=== PATIENT | male | born 1975 | race Two or more races ===

== ENCOUNTER 2018-02-27 09:43 | Emergency (ER) | payer OTHER ==
[~2018-02-27] VITALS: Ht 157.5 cm; Wt 61.2 kg
--- NOTE | 2018-02-27 09:59 | NUR ---
ED Nurse Note: Pt came in from home w/ flu like symptoms since yesterday. Pt reports non productive cough, 9/10 headache and tension around his ears. Skin warm to touch. A + O x4. Ambulatory. Partner at the bedside.
[2018-02-27 10:00] VITALS: BP 133/86
[2018-02-27] MEDS ORDERED: Acetaminophen 500mg (ES) tab ORAL ONE (10:15)
[2018-02-27 10:33] LABS: HEMATOCRIT 49.4 % (42.0-52.0); MEAN CORPUSCULAR VOLUME 88 FL (80-99); PLATELET COUNT 192 K/UL (150-450); RED CELL DISTRIBUTION WIDTH 11.8 % (11.6-14.8); WHITE BLOOD COUNT 7.3 K/UL (4.8-10.8)
[2018-02-27 10:49] LABS: ANION GAP 8 mmol/L (5-15); BLOOD UREA NITROGEN 14 mg/dL (7-18); CALCIUM 8.7 MG/DL (8.5-10.1); CARBON DIOXIDE 26 MMOL/L (21-32); CHLORIDE 104 MMOL/L (98-107); CREATININE 1.2 MG/DL (0.55-1.30); POTASSIUM 3.8 MMOL/L (3.5-5.1); SODIUM 138 MMOL/L (136-145)
--- NOTE | 2018-02-27 10:51 | NUR ---
ED Nurse Note: Urine has been collected and sent to lab.
[2018-02-27 10:54] LABS: ALANINE AMINOTRANSFERASE 49 U/L (12-78); ALBUMIN 3.7 G/DL (3.4-5.0); ALBUMIN/GLOBULIN RATIO 1.1 (1.0-2.7); ALKALINE PHOSPHATASE 94 U/L (46-116); ASPARTATE AMINO TRANSFERASE 21 U/L (15-37); BILIRUBIN,TOTAL 0.9 MG/DL (0.2-1.0)
[2018-02-27 10:57] LABS: APPEARANCE,URINE CLEAR; BILIRUBIN, URINE NEGATIVE (NEGATIVE); COLOR,URINE PALE YELLOW; GLUCOSE, URINE (UA) NEGATIVE (NEGATIVE); KETONES,URINE NEGATIVE (NEGATIVE); LEUKOCYTE ESTERASE ,URINE NEGATIVE (NEGATIVE); NITRITE,URINE NEGATIVE (NEGATIVE); PH,URINE 6 (4.5-8.0); PROTEIN,URINE NEGATIVE (NEGATIVE); UROBILINOGEN,URINE NORMAL MG/DL (0.0-1.0)
--- NOTE | 2018-02-27 10:58 | NUR ---
ED Nurse Note: Xray at the bedside.
[2018-02-27 11:50] VITALS: BP 111/76
--- NOTE | 2018-02-27 12:27 | Diagnostic Imaging Report ---
Indication: Cough Comparison: None A single view chest radiograph was obtained. Findings: Cardiomediastinal appearance is within normal limits for age. There is minimal atelectasis at the left lung base. Pulmonary vascularity is appropriate. The diaphragmatic contour is smooth and costophrenic angles are sharp. No pleural effusions are identified. The bones are unremarkable. Impression: Minimal left basal atelectasis
--- NOTE | 2018-02-27 14:29 | Emergency Room Report ---
History of Present Illness General Chief Complaint: Upper Respiratory Illness Source: Patient Present Illness Allergies: Coded Allergies: No Known Allergies (Unverified , 02/27/18) Patient History Social History: Denies: smoking, alcohol use, drug use Reviewed Nursing Documentation: PMH: Agreed; PSxH: Agreed Nursing Documentation-PMH Past Medical History: No Stated History Physical Exam Vital Signs Date Time Temp Pulse Resp B/P (MAP) Pulse Ox O2 Delivery O2 Flow Rate FiO2 02/27/18 09:47 101.1 107 20 136/92 96 Room Air 02/27/18 10:00 98 Medical Decision Making Diagnostic Impression: Primary Impression: Influenza Additional Impression: Viral syndrome Laboratory Tests Test 02/27/18 10:15 02/27/18 10:50 White Blood Count 7.3 K/UL (4.8-10.8) Red Blood Count 5.60 M/UL (4.70-6.10) Hemoglobin 17.0 G/DL (14.2-18.0) Hematocrit 49.4 % (42.0-52.0) Mean Corpuscular Volume 88 FL (80-99) Mean Corpuscular Hemoglobin 30.3 PG (27.0-31.0) Mean Corpuscular Hemoglobin Concent 34.4 G/DL (32.0-36.0) Red Cell Distribution Width 11.8 % (11.6-14.8) Platelet Count 192 K/UL (150-450) Mean Platelet Volume 8.1 FL (6.5-10.1) Neutrophils (%) (Auto) % (45.0-75.0) Lymphocytes (%) (Auto) % (20.0-45.0) Monocytes (%) (Auto) % (1.0-10.0) Eosinophils (%) (Auto) % (0.0-3.0) Basophils (%) (Auto) % (0.0-2.0) Differential Total Cells Counted 100 Neutrophils % (Manual) 87 % (45-75) H Lymphocytes % (Manual) 5 % (20-45) L Monocytes % (Manual) 4 % (1-10) Eosinophils % (Manual) 2 % (0-3) Basophils % (Manual) 2 % (0-2) Band Neutrophils 0 % (0-8) Platelet Estimate Adequate Platelet Morphology Normal Red Blood Cell Morphology Normal Sodium Level 138 MMOL/L (136-145) Potassium Level 3.8 MMOL/L (3.5-5.1) Chloride Level 104 MMOL/L (98-107) Carbon Dioxide Level 26 MMOL/L (21-32) Anion Gap 8 mmol/L (5-15) Blood Urea Nitrogen 14 mg/dL (7-18) Creatinine 1.2 MG/DL (0.55-1.30) Estimate Glomerular Filtration Rate > 60 mL/min (>60) Glucose Level 127 MG/DL (74-106) H Calcium Level 8.7 MG/DL (8.5-10.1) Total Bilirubin 0.9 MG/DL (0.2-1.0) Aspartate Amino Transferase (AST) 21 U/L (15-37) Alanine Aminotransferase (ALT) 49 U/L (12-78) Alkaline Phosphatase 94 U/L (46-116) Total Protein 7.1 G/DL (6.4-8.2) Albumin 3.7 G/DL (3.4-5.0) Globulin 3.4 g/dL Albumin/Globulin Ratio 1.1 (1.0-2.7) Urine Color Pale yellow Urine Appearance Clear Urine pH 6 (4.5-8.0) Urine Specific [place] 1.015 (1.005-1.035) Urine Protein Negative (NEGATIVE) Urine Glucose (UA) Negative (NEGATIVE) Urine Ketones Negative (NEGATIVE) Urine Blood Negative (NEGATIVE) Urine Nitrite Negative (NEGATIVE) Urine Bilirubin Negative (NEGATIVE) Urine Urobilinogen Normal MG/DL (0.0-1.0) Urine Leukocyte Esterase Negative (NEGATIVE) Microbiology Date/Time Source Procedure Growth Status 02/27/18 10:25 Nasal Nares Influenza Types A,B Antigen (PEDRO) - Final Complete Last Vital Signs Date Time Temp Pulse Resp B/P (MAP) Pulse Ox O2 Delivery O2 Flow Rate FiO2 02/27/18 11:50 100.9 110 20 111/76 98 Room Air 02/27/18 10:00 98 Scripts No Active Prescriptions or Reported Meds Referrals: NON PHYSICIAN (PCP) Eleni Marin DO Feb 27, 2018 14:29
[2018-02-27] MEDS ORDERED: ACETAMINOPHEN500 M3 ORAL (14:31)
[2018-02-27] MEDS ORDERED: IBUPROFEN600 MG ORAL (14:31)
[2018-02-27] MEDS ORDERED: TAMIFLU75 MG ORAL (14:31)
[2018-02-27 15:32] VITALS: BP 125/87
--- NOTE | 2018-02-27 15:33 | NUR ---
ED Nurse Note: Discharge instructions given tp pt. Answered all questions. Verbalized understanding. No acute distress noted. ID band and IV band removed.
--- NOTE | 2018-02-28 16:25 | Cardiology Report ---
APPROVED REPORT EKG Measurement Heart [id number] Sinus tachycardia Otherwise normal ECG
== END 2018-02-27 14:45 | disposition home or self-care (01) ==
LOC: EMR 10:40
DX: J11.1 Influenza due to unidentified influenza virus with other respiratory manifestations (principal); B34.9 Viral infection, unspecified
CPT/HCPCS: 36415; 71045; 80053; 81003; 85007; 85025; 86710; 87040; 93005; 96360; 99284

== ENCOUNTER 2018-04-03 14:03 | Emergency (ER) | payer OTHER ==
[~2018-04-03] VITALS: Ht 160 cm; Wt 72.6 kg
[~2018-04-03 14:03] MED LIST: ACETAMINOPHEN500 M3 ORAL; IBUPROFEN600 MG ORAL; TAMIFLU75 MG ORAL
[2018-04-03] MEDS ORDERED: NKM (14:21)
[2018-04-03 14:25] VITALS: BP 123/82
--- NOTE | 2018-04-03 14:30 | NUR ---
ED Nurse Note: walked in to ED due to coughing for over 1 month. at this time patient is alert and oriented x4 ,ambulatory with a steady gait, VSS
--- NOTE | 2018-04-03 15:04 | Emergency Room Report ---
History of Present Illness General Chief Complaint: Upper Respiratory Illness Source: Patient (Krista Nolasco) Present Illness HPI 42-year-old male presents to the emergency department complaining of persistent cough 1 month. Patient was seen here in the emergency department last month and was diagnosed with influenza for which he was prescribed Tamiflu for. Patient states that his cough symptoms never did subside he continues to have persistent coughing he states worse at nighttime denies history of acid reflux or sputum production. Patient denies history of asthma, COPD or smoking. He denies fevers but reports chills. PT. denies any other associated symptoms. He denies recent travel or ill contacts with similar symptoms. Denies CP, Palpitations, LOC, AMS, dizziness, or SOB. He denies pain at this time, but reports will have some sharp pains throughout the chest with episodes of coughing. (Krista Nolasco) Allergies: Coded Allergies: No Known Allergies (Unverified , 02/27/18) Patient History Past Medical History: see triage record Past Surgical History: none Pertinent Family History: none Reviewed Nursing Documentation: PMH: Agreed; PSxH: Agreed (Krista Nolasco) Nursing Documentation-PMH Past Medical History: No Stated History (Krista Nolasco) Review of Systems All Other Systems: negative except mentioned in HPI (Krista Nolasco) Physical Exam Vital Signs Date Time Temp Pulse Resp B/P (MAP) Pulse Ox O2 Delivery O2 Flow Rate FiO2 04/03/18 14:20 98.4 86 18 123/82 96 Room Air Sp02 EP Interpretation: reviewed, normal General Appearance: no apparent distress, alert, GCS 15, non-toxic Head: normocephalic, atraumatic Eyes: bilateral eye normal inspection, bilateral eye PERRL ENT: hearing grossly normal, normal voice Neck: full range of motion Respiratory: chest non-tender, normal breath sounds, rhonchi - Left lower lung ortega- faint , speaking full sentences Cardiovascular #1: regular rate, rhythm, no edema, normal capillary refill Musculoskeletal: back normal, gait/station normal, normal range of motion, non- tender Neurologic: alert, oriented x3, responsive, motor strength/tone normal, sensory intact, speech normal, grossly normal Psychiatric: judgement/insight normal Skin: normal color, no rash, warm/dry, well hydrated Lymphatic: no adenopathy (Krista Nolasco) Medical Decision Making PA Attestation Dr. Rubio is my supervising Physician whom patient management has been discussed with. (Krista Nolasco) Diagnostic Impression: Primary Impression: Pneumonia Qualified Codes: J18.1 - Lobar pneumonia, unspecified organism ER Course 42-year-old male presents to the emergency department complaining of persistent cough 1 month. Patient was seen here in the emergency department last month and was diagnosed with influenza for which she was prescribed Tamiflu for. Patient states that his cough symptoms never did subside he continues to have persistent coughing he states worse at nighttime denies history of acid reflux or sputum production. Patient denies history of asthma, COPD or smoking. He denies fevers or chills. PT. denies any other associated symptoms. He denies recent travel or ill contacts with similar symptoms. Denies CP, Palpitations, LOC, AMS, dizziness, or SOB. He denies pain at this time, but reports will have some sharp pains throughout the chest with episodes of coughing. Ddx considered but are not limited to URI, pneumonia, PE, strep pharyngitis, meningitis. Vital signs: Pt.is afebrile VS are WNL H&PE are most consistent with suspicion for walking PNA. ORDERS:- CXR: LLL infiltrate. ED INTERVENTIONS: None required at this time. -d/w pt. cxr findings, and treatment plan. pt. stable for close outpatient follow up. DISCHARGE: At this time pt. is stable for d/c to home. Will provide printed patient care instructions, and any necessary prescriptions. Care plan and follow up instructions have been discussed with the patient prior to discharge. (Krista Nolasco) Chest X-Ray Diagnostic Results Chest X-Ray Diagnostic Results : Chest X-Ray Ordered: Yes Indication: Shortness of Breath EP Interpretation: Yes PA Xray: Interpretation reviewed, by supervising MD - Dr. Ayala, and agrees with findings. Interpretation: no consolidation, no pneumothorax, no acute cardiopulmonary disease, other - abnormal- LLL infiltrate Impression: Other - abnormal- LLL infiltrate Electronically Signed by: Krista Nolasco PA-C (Krista Nolasco) Chest X-Ray Diagnostic Results : Electronically Signed by: Cassidy Morel documentation of Xray reviewed by me and is accurate, Bryant Rubio MD (Bryant Rubio MD) Other X-Ray Diagnostic Results Other X-Ray Diagnostic Results : Impression: Other (Krista Nolasco) Last Vital Signs Date Time Temp Pulse Resp B/P (MAP) Pulse Ox O2 Delivery O2 Flow Rate FiO2 04/03/18 14:20 98.4 86 18 123/82 96 Room Air (Krista Nolasco) Disposition: HOME, SELF-CARE Condition: Stable Scripts Albuterol Sulfate* (ALBUTEROL SULFATE MDI*) 8.5 Gm Hfa.aer.ad 2 PUFF INH Q3H, #1 INH 0 Refills Prov: Krista Nolasco 04/03/18 Codeine/Promethazine Hcl* (PROMETHAZINE-CODEINE SYRUP*) 118 Ml Syrup 5 ML ORAL Q6H PRN for For Cough, #120 ML 0 Refills Prov: Krista Nolasco 04/03/18 Azithromycin* (ZITHROMAX*) 250 Mg Tablet 250 MG ORAL DAILY, #6 TAB 0 Refills Take two tables once daily for 1 day, then one tablet once daily for 4 days. Prov: Krista Nolasco 04/03/18 Patient Instructions: Upper Respiratory Infection, Adult, [id number] Additional Instructions: Take medications as directed. Follow up with a Primary Care Provider in 3-5 days, even if your symptoms have resolved. --Please review list of primary care clinics, if you do not already have a primary care provider Return sooner to ED if new symptoms occur, or current symptoms become worse. Do not drink alcohol, drive, or operate heavy machinery while taking Cough Syrup as this may cause drowsiness. - Please note that this Emergency Department Report was dictated using [employer] screener technology software, occasionally this can lead to erroneous entry secondary to interpretation by the dictation equipment. Krista Nolasco Apr 03, 2018 15:04 Bryant Rubio MD Apr 04, 2018 19:36
[2018-04-03] MEDS ORDERED: ZITHROMAX250 MG ORAL (15:53)
[2018-04-03] MEDS ORDERED: ALBUTEROL SULF8.5 GM INH (15:53)
[2018-04-03] MEDS ORDERED: PROMETHAZINE-C118 M1 ORAL (15:53)
[2018-04-03 16:10] VITALS: BP 110/78
--- NOTE | 2018-04-03 16:10 | NUR ---
ED Nurse Note: A/Ox4. Pt is cleared by DANDY Velasco. DC instruction and prescriptions given, pt verbalized understanding. IV/ID wristband removed. All belongings taken by pt. Denies pain at this time. Pt ambulated out of ER with steady gait.
--- NOTE | 2018-04-03 16:43 | Diagnostic Imaging Report ---
Indication: Cough Technique: One view of the chest Comparison: 02/27/2018 Findings: The heart is borderline enlarged. The lungs and pleural spaces are clear. Previously demonstrated left basilar atelectasis is no longer evident Impression: Borderline cardiomegaly. No acute process
== END 2018-04-03 16:10 | disposition home or self-care (01) ==
LOC: EMR 14:50
DX: J18.9 Pneumonia, unspecified organism (principal)
CPT/HCPCS: 71045; 99283